=== PATIENT | male | born 1945 | race Caucasian/White ===

== ENCOUNTER 2022-01-02 12:12 | Inpatient (IN) ==
[2022-01-02] MEDS ORDERED: HYDROcodone/ACETAMIN 5/325 mg TAB PO PRN (15:20)
[2022-01-02] MEDS ORDERED: fentaNYL PATCH 12 MCG/HR 1 PATCH TRANSDERM SCH (16:00)
[2022-01-03 09:04] VITALS: BP 105/49
== END 2022-01-03 11:18 | disposition hospice, home (50) | DRG 309 ==
LOC: MEDTELE 12:16
PROVIDERS: ADMIT Internal Medicine; ATTEND Internal Medicine